=== PATIENT | male | born 1990 | race Two or more races ===

== ENCOUNTER 2019-01-30 23:01 | Emergency (ER) | payer SELFPAY ==
[~2019-01-30] VITALS: Ht 167.6 cm; Wt 76.2 kg
[2019-01-30 23:08] VITALS: Ht 167.6 cm; Wt 76.2 kg
[2019-01-31 01:42] VITALS: BP 134/78
== END 2019-01-31 01:42 | disposition home or self-care (01) ==
LOC: ED 23:01
DX: J45.901 Unspecified asthma with (acute) exacerbation (principal); R51 Headache
CPT/HCPCS: 87804; J1885; J7620; Q0092

== ENCOUNTER 2021-01-06 10:29 | Emergency (ER) | payer MEDICAID ==
[~2021-01-06] VITALS: Ht 165.1 cm; Wt 74.4 kg
[2021-01-06 10:37] VITALS: Ht 165.1 cm; Wt 74.4 kg
[2021-01-06] MEDS ORDERED: [UNRECOGNIZED DRUG - OTHER] AU (10:57)
[2021-01-06] MEDS ORDERED: KEF500 PO (10:57)
[2021-01-06 11:17] VITALS: BP 144/84
== END 2021-01-06 11:17 | disposition home or self-care (01) ==
LOC: ED 10:29
DX: H66.91 Otitis media, unspecified, right ear (principal); H60.91 Unspecified otitis externa, right ear; J45.909 Unspecified asthma, uncomplicated